=== PATIENT | female | born 1990 | race American Indian/Alaskan Native ===

== ENCOUNTER 2020-11-11 12:32 | Emergency (ER) | payer OTHER ==
[2020-11-11 12:46] VITALS: BP 131/67
[2020-11-11] MEDS ORDERED: METOCLOPRAMIDE 10 MG TAB PO ONE (13:28)
[2020-11-11] MEDS ORDERED: ACETAMINOPHEN 325 MG TAB PO ONE (13:28)
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
== END 2020-11-11 15:39 | disposition home or self-care (01) ==
LOC: ED 12:32
DX: O34.81 Maternal care for other abnormalities of pelvic organs, first trimester (principal); O26.891 Other specified pregnancy related conditions, first trimester; S16.1XXA Strain of muscle, fascia and tendon at neck level, initial encounter; R10.2 Pelvic and perineal pain; R51.9 Headache, unspecified; N83.209 Unspecified ovarian cyst, unspecified side; M19.91 Primary osteoarthritis, unspecified site; Z3A.09 9 weeks gestation of pregnancy; Z98.890 Other specified postprocedural states; Z79.899 Other long term (current) drug therapy; Z88.8 Allergy status to other drugs, medicaments and biological substances; V47.6XXA Car passenger injured in collision with fixed or stationary object in traffic accident, initial encounter; W22.10XA Striking against or struck by unspecified automobile airbag, initial encounter; Y93.89 Activity, other specified; Y92.410 Unspecified street and highway as the place of occurrence of the external cause; Y99.8 Other external cause status
CPT/HCPCS: 76801